=== PATIENT | male | born 1995 ===

== ENCOUNTER 2019-05-29 20:39 | Emergency (ER) | payer BC ==
--- NOTE | 2019-05-29 20:47 | UC ---
Laceration HPI - HPI Summary HPI Summary: 24 yo male presents with left thumb laceration. He tells me that just [employer] he was slicing food and the knife slipped and he sustained a laceration to his left thumb. Unable to stop the bleeding - prompting his visit to . Last tetanus shot was about 3 years ago. - History Of Current Complaint Stated Complaint: FINGER LAC Time Seen by Provider: 05/29/19 20:47 Hx Obtained From: Patient Laceration Location: Finger Mechanism Of Injury: Sharp Trauma Onset/Duration: Sudden Onset Severity: Mild Pain Intensity: 2 Pain Scale Used: 0-10 Numeric - Allergies/Home Medications Allergies/Adverse Reactions: Allergies Allergy/AdvReac Type Severity Reaction Status Date / Time No Known Allergies Allergy Verified 05/29/19 20:53 PMH/Surg Hx/FS Hx/Imm Hx - Additional Past Medical History Additional PMH: Seasonal allergies - Surgical History Surgical History: None - Family History Known Family History: Negative: Hypertension, Diabetes, Other - HERNIA - Social History Lives: With Family Alcohol Use: None Substance Use Type: None Smoking Status (MU): Never Smoked Tobacco Review of Systems All Other Systems Reviewed And Are Negative: No Constitutional: Positive: Negative Skin: Positive: Other - finger laceration Respiratory: Positive: Negative Cardiovascular: Positive: Negative Neurovascular: Positive: Negative Neurological: Positive: Negative Psychological: Positive: Negative Physical Exam - Summary Physical Exam Summary: GENERAL: NAD. WDWN. No pain distress. SKIN: LEFT THUMB: Distal aspect with 6mm linear superficial laceration that is well approximated at rest. Moderate active bleeding. No subcutaneous or tendon or bony involvement. CHEST: No accessory muscle use. Breathing comfortably and in no distress. CV: Pulses intact. Cap refill <2seconds NEURO: Alert. PSYCH: Age appropriate behavior. Triage Information Reviewed: Yes Vital Signs: Vital Signs: Temp Pulse Resp BP Pulse Ox 99.3 F 82 16 156/95 100 05/29/19 20:45 05/29/19 20:45 05/29/19 20:45 05/29/19 20:45 05/29/19 20:45 Vital Signs Reviewed: Yes Laceration Repair - Laceration Repair 1 Description: Linear Laceration Size After Repair: Length (cm) - 0.7 Cleansing Completed Via Routine Prep: Yes Closure Material: Skin Adhesive Closure Method: Single Layer Suture Of: Skin Laceration Course/Dx - Course/Dx Course Of Treatment: Wound irrigated with 100mL NS. Hemostasis achieved. Dermabond applied. Bandaged with tubegauze - Diagnosis Provider Diagnosis: Finger laceration Discharge ED - Sign-Out/Discharge Documenting (check all that apply): Patient Departure All imaging exams completed and their final reports reviewed: No Studies - Discharge Plan Condition: Stable Disposition: HOME Patient Education Materials: Finger Laceration (ED), Skin Adhesive Care (ED) Referrals: Pete Tam NP [Primary Care Provider] - Additional Instructions: If you develop a fever, shortness of breath, chest pain, new or worsening symptoms - please call your PCP or go to the ED immediately. Your blood pressure was high at todays visit. Please see your primary provider within 4 weeks for recheck and re-evaluation. Change the dressing daily until well healed. (likely 5-7 days) - Billing Disposition and Condition Condition: STABLE Disposition: Home
[2019-05-29 20:53] VITALS: BP 156/95
== END 2019-05-29 21:29 | disposition home or self-care (01) ==
LOC: UCEAST 20:39
DX: S61.012A Laceration without foreign body of left thumb without damage to nail, initial encounter (principal); W26.0XXA Contact with knife, initial encounter; Y93.89 Activity, other specified; Y92.9 Unspecified place or not applicable
CPT/HCPCS: 12001; 99211; G0463